=== PATIENT | male | born 1990 | race Caucasian/White ===

== ENCOUNTER 2020-10-17 20:17 | Emergency (ER) | payer OTHER, SELFPAY ==
--- NOTE | ~2020-10-17 | CT_ITS ---
EXAMINATION: CT abdomen pelvis w con DATE: 10/17/2020 23:23 INDICATION: Umbilical pain, hernia TECHNIQUE: Computed tomography (CT) of the abdomen and pelvis was performed with 100 cc Omnipaque 350 intravenous contrast. Automated exposure control and iterative reconstruction technique were employe d. Exam dose: 373.51 mGy-cm total exam DLP. COMPARISON: 12/02/2016 complete abdominal ultrasound FINDINGS: The lung bases are clear of infiltrate or consolidation. Normal heart size. No pericardial or pleural effusion. The liver, gallbladder, bile ducts, spleen, pancreas, pancreatic duct, and adrenal glands and kidneys are unremarkable. No urinary tract calculus or hydroureteronephrosis is evident. The urinary bladder and prostate gland are unremarkable. Normal caliber of the abdominal aorta. There is a separate origin of the splenic artery directly from the abdominal aorta rather than the ce liac trunk. No abdominal aortic calcification or plaque formation. No intraperitoneal or retroperiton eal or pelvic mass lesion or adenopathy or ascites is evident. Normal appendix. No bowel obstruction, bowel wall thickening, pneumatosis or intraperitoneal free air . Approximately 2.1 x 2.3 cm fat-containing umbilical hernia. There is some patchy soft tissue density within the umbilical hernia which may indicate some inflammation or edema. Included skeletal structures are unremarkable. IMPRESSION: 2.1 x 2.3 cm fat-containing umbilical hernia; there is some soft tissue density within t he hernia sac which may indicate some inflammation or edema of the herniated fat. Reviewed, dictated and finalized at [facility] Reviewed, dictated and finalized at [facility] IMPRESSION: 2.1 x 2.3 cm fat-containing umbilical hernia; there is some soft t issue density within the hernia sac which may indicate some inflammation or darius ma of the herniated fat.
[2020-10-17 20:49] VITALS: BP 137/80; PULSE 73; RESP 18; TEMP 36.7; O2SAT 100
--- NOTE | 2020-10-17 21:55 | ED.GENADULT ---
HPI - General Adult General Chief complaint: Wound/Laceration Stated complaint: ? Hernia Time Seen by Provider: 10/17/20 21:41 History of Present Illness HPI narrative: Patient is a 30-year-old male who presents ER with pain and swelling around his umbilicus. Noticed swelling and pain today. Has now developed bruising around the area. 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 No recent injury that he is aware of. He is eating drinking and defecating without issue. No alleviating factors. Related Data Home Medications Medication Instructions Recorded Confirmed No Home Medications 10/17/20 10/17/20 Allergies Allergy/AdvReac Type Severity Reaction Status Date / Time No Known Allergies Allergy Unknown Verified 10/17/20 21:34 Review of Systems Review of Systems: All systems reviewed & are unremarkable except as noted in HPI and below Constitutional: Constitutional: Denies chills and Denies fever(s) Gastrointestinal: Gastrointestinal: Reports abdominal pain, Denies bloating, Denies constipation, Denies nausea and Denies vomiting Comments: Abdominal wall defect Genitourinary: Genitourinary: Denies dysuria and Denies urinary frequency PMFSH Past Medical History Medical History (Updated 10/17/20 @ 23:47 by Rhett Alonzo MD) Healthy adult male Surgical History Surgical History (Updated 10/17/20 @ 21:56 by Rhett Alonzo MD) No history of previous surgery Social History Social History Gender identity (if verbalized by the patient): Male Sexual Orientation (if Verbalized by the Patient): Straight or Heterosexual Exam Narrative: Exam Narrative: GENERAL: Well-appearing, well-nourished, and in no acute distress. HEAD: Normocephalic, atraumatic. ENT: Mucous membranes moist. CHEST: Clear to auscultation. No respiratory distress. HEART: Regular rate and rhythm. Normal peripheral pulses. ABDOMEN: Soft, nontender, nondistended. Contusion on the umbilicus with palpable mass likely umbilical hernia that is containing fat. EXTREMITIES: Normal range of motion. No edema. SKIN: Warm, dry, no rash. NEURO: Alert and oriented x3. Course Course Emergency Course: Patient informed of diagnosis and treatment plan. Verbalized understanding. Vital Signs Vital signs: Vital Signs Temperature 98.0 F 10/17/20 20:49 Pulse Rate 73 10/17/20 20:49 Respiratory Rate 18 10/17/20 20:49 Blood Pressure 137/80 10/17/20 20:49 Pulse Oximetry 100 10/17/20 20:49 Temperature 98.0 F 10/17/20 20:49 Pulse Rate 73 10/17/20 20:49 Respiratory Rate 18 10/17/20 20:49 Blood Pressure 137/80 10/17/20 20:49 Pulse Oximetry 100 10/17/20 20:49 Medical Decision Making Vital Signs Vital Signs: Vital Signs Temperature 98.0 F 10/17/20 20:49 Pulse Rate 73 10/17/20 20:49 Respiratory Rate 18 10/17/20 20:49 Blood Pressure 137/80 10/17/20 20:49 Pulse Oximetry 100 10/17/20 20:49 Temperature 98.0 F 10/17/20 20:49 Pulse Rate 73 10/17/20 20:49 Respiratory Rate 18 10/17/20 20:49 Blood Pressure 137/80 10/17/20 20:49 Pulse Oximetry 100 10/17/20 20:49 ABG Data Interpretation: ITS Impressions Abdomen/Pelvis CT 10/17/20 23:29 IMPRESSION: 2.1 x 2.3 cm fat-containing umbilical hernia; there is some soft tissue density within the hernia sac which may indicate some inflammation or edema of the herniated fat. Discharge Plan Discharge Clinical Impression: Hernia, umbilical Patient Disposition: Home, Self-Care Condition: Stable Instructions: Umbilical Hernia (ED) Additional Instructions: You have a fat-containing umbilical hernia. Will likely cause increased pain with heavy lifting. Follow-up with general surgery for further treatment evaluation. You may require surgical repair. Take ibuprofen as needed for pain. Prescriptions: No Action No Home Medications RF: 0 Follow-up/Re
[2020-10-17 23:59] VITALS: BP 131/78; PULSE 71; RESP 16; O2SAT 100
[2020-10-18 09:00] LABS: Estimated CRCL calculation 85 ml/min; Estimated Glomerular Filt Rate > 60
== END 2020-10-17 23:57 | disposition home or self-care (01) ==
PROVIDERS: Emergency Provider Emergency Medicine; PCP Family Medicine
DX: K42.9 Umbilical hernia without obstruction or gangrene (principal)
CPT/HCPCS: 74177; 99284; Q9967

== ENCOUNTER → 2020-11-02 02:04 | Outpatient (CLI) | payer OTHER, SELFPAY ==
[2020-11-02 19:11] LABS: SARS-CoV-2 RNA PCR Negative
== END ==
PROVIDERS: PCP Family Medicine; Visit Provider Surgery
DX: Z01.812 Encounter for preprocedural laboratory examination (principal); Z20.822 Contact with and (suspected) exposure to COVID-19
CPT/HCPCS: C9803; U0003; U0005

== ENCOUNTER → 2020-11-19 01:20 | Outpatient (CLI) | payer OTHER, SELFPAY ==
[2020-11-19 18:48] LABS: SARS-CoV-2 RNA PCR Negative
== END ==
PROVIDERS: PCP Family Medicine; Visit Provider Surgery
DX: Z01.812 Encounter for preprocedural laboratory examination (principal); Z20.822 Contact with and (suspected) exposure to COVID-19
CPT/HCPCS: C9803; U0003; U0005

== ENCOUNTER 2020-11-22 02:03 | Day surgery (SDC) | payer OTHER, SELFPAY ==
[2020-10-31 16:26] VITALS: BMI 27.4
--- NOTE | 2020-11-09 14:54 | PC.NURSE ---
Pt states no changes in medication or health history since time of initial interview. New Covid date/time and pre-op instructions reviewed with pt. Pt denies any questions at this time.
[2020-11-22] VITALS (7 sets, daily range): BP systolic 107–140; BP diastolic 54–93; PULSE 59–80; RESP 12–20; TEMP 36.6–36.9; O2SAT 97–100
[2020-11-22] MEDS: ACETAMINOPHEN 500 MG TABLET 1000 MG PO (10:17)
[2020-11-22] MEDS: LACTATED RINGERS 1,000 ML 30 ML IV CONT (10:35)
[2020-11-22] MEDS: KETOROLAC 15 MG/ML VIAL (*BKC) IV PUSH (10:38)
--- NOTE | 2020-11-22 10:57 | WPDANESEPPF ---
Anes - Initial Pre Proc Eval Procedure: Operation Date: 11/22/20 12:00 Proposed Procedures p Open Incarcerated Umbilical Hernia Repair With Mesh - Lara Sloan MD Date/Time: 11/22/20 10:57 Surgeon: Lara Sloan MD Pre Op Diagnosis: incarcerated umbilical hernia Patient Data Age: 30 Gender: M Height: 1.68 m Weight: 78 kg Last Vital Signs Temp 36.9 C 11/22/20 10:13 Pulse 59 L 11/22/20 10:13 Resp 20 11/22/20 10:13 BP 136/76 11/22/20 10:13 Pulse Ox 100 11/22/20 10:13 Allergies Allergy/AdvReac Type Severity Reaction Status Date / Time No Known Allergies Allergy Unknown Verified 11/09/20 14:54 Home Medications Medication Instructions Recorded Confirmed Type No Home Medications 10/17/20 11/09/20 History Patient hx anesthesia problems: none Family hx anesthesia problems: none PMFSH Past Medical History Medical History Healthy adult male Surgical History Surgical History No history of previous surgery Family History Family History Father Diabetes mellitus Grandparent Lung cancer Social History Social History Years smoked: 1 Smoking status: Former smoker Tobacco type: cigarettes Alcohol intake: current Last use: 2008 Living arrangements: with family Additional occupation/education comments: [employer] Gender identity (if verbalized by the patient): Male Spiritual care concerns: No Anes - Eval Final PreProcedure Day of Procedure 11/22/20 10:57 Patient weight: overweight Heart: regular rate and rhythm Lungs: clear to auscultation and normal air movement Airway: Mallampati scale class III Neurological: alert and oriented Last oral intake: >/= 8 hours ASA classification: II Emergent: no Anesthetic plan: proceed Anesthesia type and monitoring: general ETT and standard monitoring Informed Consent: The patient's anesthetic plan and its attendant risks and benefits were discussed with the patient/family/POA. Questions were solicited and answers provided to the satisfaction of the patient/family/POA.
--- NOTE | 2020-11-22 11:54 | WPDHPUPDATE1 ---
History and Physical Update Update Date/Time: 11/22/20 11:54 History and Physical has been reviewed, including an updated exam of the patient. There are NO changes in the patient's condition. Risks, benefits, and alternatives have been discussed and questions answered. Patient agrees to proceed with procedure.
[2020-11-22] MEDS: ceFAZolin 2 GM/D5W 50 ML 2 GM/50 ML BAG IVPB (11:58)
[2020-11-22] MEDS: LIDO 1%/EPINEPHRINE 1:100,000 50 ML VIAL 30 ML INFILTRATE (12:22)
--- NOTE | 2020-11-22 13:04 | PM.PROC ---
Procedure Note - Detailed Date of procedure: 11/22/20 Pre-op diagnosis: incarcerated umbilical hernia incarcerated umbilical hernia Post-op diagnosis: same Procedure performed: primary repair of incarcerated umbilical hernia Description of procedure: The patient was taken to the operating room placed in the supine position. After adequate induction of general anesthesia, the patient was prepped and draped in the normal sterile fashion. A time-out was then done to verify the patient's identity, as well as the procedure being performed. I began by localizing the area around the umbilicus. I then made a curvilinear incision in the infraumbilical fold. This was taken down to level fascia. I then was able to bluntly dissect around the umbilicus. I then carefully dissected the umbilicus off the underlying fascia. I then noted a small defect with incarcerated fat. I was able to mobilize the incarcerated tissue and reduced it back into the abdominal cavity. This left an approximately 1 cm defect. I closed this defect primarily with interrupted 0 Ethibond sutures. I then reapproximated the umbilicus to the fascia with a 3 0 Vicryl U-stitch. The subcutaneous tissue was then closed with 3 0 Vicryl suture. The skin was closed with 4 0 Monocryl subcuticular suture. Dermabond was then placed on the wound. The patient tolerated the procedure well was extubated in the operating room postop. She will be transferred to the recovery room in stable condition. Anesthesia: GLMA and local Surgeon: Lara Sloan MD Estimated blood loss (mL): 5 Drains: No Packing: No Pathology: none sent Complications: No immediate complications Condition: stable Disposition: PACU Findings: Incarcerated umbilical hernia with fat, 1 cm defect
== END 2020-11-22 14:31 | disposition home or self-care (01) ==
PROVIDERS: PCP Family Medicine; Visit Provider Surgery
PROC: (CPT 49587; principal; 2020-11-22 12:00)
DX: K42.0 Umbilical hernia with obstruction, without gangrene (principal); Z87.891 Personal history of nicotine dependence
CPT/HCPCS: 49587; A9270; C9803; J0690; J1100; J1885; J2250; J2405; J2704; J3010; J7120; U0003; U0005

== ENCOUNTER 2023-10-18 08:55 | Emergency (ER) | payer BC, SELFPAY ==
[2023-10-18 09:06] VITALS: BP 115/52; PULSE 85; RESP 16; TEMP 36.9; O2SAT 100
--- NOTE | 2023-10-18 09:27 | ED.GENADULT ---
HPI - General Adult General Chief complaint: Skin/Abscess/Foreign Body Stated complaint: Rash Source: patient Mode of arrival: ambulatory Limitations: no limitations History of Present Illness HPI narrative: Patient presents for evaluation of skin concerns. 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 Denies any itching. Reports some burning in the area. He shaved the area so he could apply topical products. He applied aquaphor twice and Neosporin twice. No new topical products prior to the time of symptom onset. Related Data Allergies Allergy/AdvReac Type Severity Reaction Status Date / Time No Known Allergies Allergy Unknown Verified 10/18/23 08:57 Review of Systems Review of Systems: CONSTITUTIONAL: Denies fever, chills, or sweats. EYES: Denies visual changes, redness, or discharge. ENT: Denies rhinorrhea, congestion, sore throat, or otalgia. CARDIOVASCULAR: Denies chest pain, palpitations, or edema. RESPIRATORY: Denies cough or dyspnea. GASTROINTESTINAL: Denies abdominal pain, nausea, vomiting, or diarrhea. GENITOURINARY: Denies dysuria or hematuria. SKIN: Reports areas of redness with associated burning to left inguinal region. MUSCULOSKELETAL: Denies back pain, joint pain, or myalgia. NEUROLOGIC: Denies headache, numbness, dizziness, or weakness. PSYCHIATRIC: Denies anxiety or depression. [facility] Past Medical History Medical History Healthy adult male Surgical History Surgical History H/O umbilical hernia repair 11/22/20 primary repair of incarcerated umbilical hernia Family History Family History Father Diabetes mellitus Grandparent Lung cancer Social History Social History Years smoked: 1 Smoking status: Former smoker Tobacco type: cigarettes Alcohol intake: former Alcohol use details: rare Substance use: never Substance use type: does not use Last use: 2009 Do You Feel Safe in your Home?: Yes Lack of Transportation: No Lack of Food: Never True Current Housing: I Have Housing Difficulty Paying Gas/Electric Bills: No Difficulty Paying for Meds: No Currently Unemployed: No Education: High School Diploma/GED Difficulty w/ Childcare or Family Care: No Living arrangements: with family Occupation/Education: occupation Additional occupation/education comments: [employer] Gender identity (if verbalized by the patient): Male Sexual Orientation (if Verbalized by the Patient): Straight or Heterosexual Spiritual care concerns: No Exam Narrative: GENERAL: Well-appearing, well-nourished, and in no acute distress. HEAD: Normocephalic, atraumatic. EYES: PERRLA and EOMI. ENT: Nares clear, no rhinorrhea or epistaxis. Mucous membranes moist. Oropharynx without tonsillar hypertrophy exudate or other lesions. Bilateral TMs pearly [place] nonbulging NECK: Supple. No adenopathy or masses. No carotid bruits or JVD CHEST: Clear to auscultation. No respiratory distress. No wheezes rales or rhonchi HEART: Regular rate and rhythm. No murmur heard. Normal peripheral pulses. ABDOMEN: Soft, nontender, nondistended, normal active bowel sounds. EXTREMITIES: Normal range of motion. No edema. SKIN: There are (3) areas of excoriation and erythema to inguinal region that are approximately 1cm in size surrounding hair follicles NEURO: No focal deficits. Alert and oriented x3. PSYCH: Normal mood and affect. Course Course Emergency Course: This is a 33-year-old male who presented for evaluation of skin concerns. Appears he has folliculitis. Will treat with doxycycline and mupirocin. Increase hydration. Keep area dry. Follow up with PCP and go to the ER for worsening symptoms.
== END 2023-10-18 09:30 | disposition home or self-care (01) ==
PROVIDERS: Emergency Provider Nurse Practitioner; PCP Family Medicine
DX: L73.9 Follicular disorder, unspecified (principal); Z87.891 Personal history of nicotine dependence
CPT/HCPCS: 99213; G0463

== ENCOUNTER 2023-10-22 16:31 | Emergency (ER) | payer BC, SELFPAY ==
--- NOTE | 2023-10-22 16:37 | ED.SKABFB ---
HPI - Skin/Abscess/Foreign Bdy General Chief complaint: Skin/Abscess/Foreign Body Stated complaint: Rash Time Seen by Provider: 10/22/23 16:37 Source: patient, RN notes reviewed and old records reviewed Mode of arrival: ambulatory Limitations: no limitations History of Present Illness HPI narrative: 33-year-old male presents to the [facility] after being evaluated 4 days ago and prescribed doxycycline and mupirocin. Patient has 3 areas of induration on the left upper inner thigh. Patient states that it is not getting better. Has not gotten worse. 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 Yesterday was the 1st day was able to leave it open to air for period of time No fluctuance, no increased redness, no increased Related Data Allergies Allergy/AdvReac Type Severity Reaction Status Date / Time No Known Allergies Allergy Unknown Verified 10/22/23 16:44 Review of Systems Review of Systems: All systems reviewed & are unremarkable except as noted in HPI and below Constitutional: Constitutional: Reports no additional constitutional complaints Eyes: Eyes: Reports no additional eye complaints ENT: Reports system reviewed and no additional complaints, except as documented Cardiovascular: Cardiovascular: Reports no additional cardiovascular complaints, Denies chest pain and Denies dyspnea Respiratory: Respiratory: Reports no additional respiratory complaints, Denies chest congestion, Denies cough and Denies dyspnea Gastrointestinal: Gastrointestinal: Reports no additional gastrointestinal complaints, Denies abdominal pain, Denies nausea and Denies vomiting Musculoskeletal: Musculoskeletal: Reports no additional musculoskeletal complaints Integumentary/Breasts: Skin/Breast: Reports as per HPI Neurologic: Reports system reviewed and no additional complaints, except as documented Psychiatric: Psychiatric: Reports no additional psychiatric complaints Allergic/Immunologic: Allergic/Immunologic: Reports no additional allergic/immunologic complaints [facility] Past Medical History Medical History Healthy adult male Surgical History Surgical History H/O umbilical hernia repair 11/22/20 primary repair of incarcerated umbilical hernia Family History Family History Father Diabetes mellitus Grandparent Lung cancer Social History Social History Years smoked: 1 Smoking status: Former smoker Tobacco type: cigarettes Alcohol intake: former Alcohol use details: rare Substance use: never Substance use type: does not use Last use: 2009 Do You Feel Safe in your Home?: Yes Lack of Transportation: No Lack of Food: Never True Current Housing: I Have Housing Difficulty Paying Gas/Electric Bills: No Difficulty Paying for Meds: No Currently Unemployed: No Education: High School Diploma/GED Difficulty w/ Childcare or Family Care: No Living arrangements: with family Occupation/Education: occupation Additional occupation/education comments: [employer] Gender identity (if verbalized by the patient): Male Sexual Orientation (if Verbalized by the Patient): Straight or Heterosexual Spiritual care concerns: No Comments At the time of my signature, I reviewed and agree with the nursing past medical, surgical, social, and family history. There is no relevant family history pertinent to the patient complaint. Exam Const: General: cooperative, healthy appearing, comfortable, no acute distress, well developed, alert and well nourished Nutritional Appearance: well nourished Orientation/consciousness: patient oriented x3 Limitations: no limitations HENMT: Head: normal to inspection Ears: hearing grossly normal bilaterally and external ears normal Face/Nose/Sinus: Normal
[2023-10-22 16:40] VITALS: BP 125/72; PULSE 65; RESP 16; TEMP 36.9; O2SAT 100
== END 2023-10-22 16:58 | disposition home or self-care (01) ==
PROVIDERS: Emergency Provider Nurse Practitioner; PCP Family Medicine
DX: L73.9 Follicular disorder, unspecified (principal); Z87.891 Personal history of nicotine dependence
CPT/HCPCS: 99211; G0463

== ENCOUNTER 2023-12-02 18:14 | Emergency (ER) | payer BC, SELFPAY ==
[2023-12-02 18:24] VITALS: BP 141/83; PULSE 71; RESP 16; TEMP 37.1; O2SAT 97
--- NOTE | 2023-12-02 18:37 | ED.SKABFB ---
HPI - Skin/Abscess/Foreign Bdy General Chief complaint: Skin/Abscess/Foreign Body Stated complaint: left thigh worse since last visit Time Seen by Provider: 12/02/23 18:30 Source: patient Mode of arrival: ambulatory Limitations: no limitations History of Present Illness HPI narrative: Edward is a 33-year-old male patient presenting to the clinic today with complaints of a rash to the left inner thigh. He reports that this has been going on for a month and a half. Been treated for folliculitis-states he was taking doxycycline, clobetasol, triamcinolone cream, and mupirocin cream. He reports that none of these creams or medications have helped the symptoms. States the rash itches and jansen at times. Related Data Allergies Allergy/AdvReac Type Severity Reaction Status Date / Time No Known Allergies Allergy Unknown Verified 12/02/23 18:31 Review of Systems Review of Systems: Pertinent positives per HPI. Patient denies any fever, chills, headache, visual changes, dizziness, cough, runny nose, sore throat, shortness of breath, chest pain, palpitations, nausea, vomiting, diarrhea, constipation, abdominal pain, or any urinary issues. [facility] Past Medical History Medical History Healthy adult male Surgical History Surgical History H/O umbilical hernia repair 11/22/20 primary repair of incarcerated umbilical hernia Family History Family History Father Diabetes mellitus Grandparent Lung cancer Social History Social History Years smoked: 1 Smoking status: Former smoker Tobacco type: cigarettes Alcohol intake: former Alcohol use details: rare Substance use: never Substance use type: does not use Last use: 2009 Do You Feel Safe in your Home?: Yes Lack of Transportation: No Lack of Food: Never True Current Housing: I Have Housing Difficulty Paying Gas/Electric Bills: No Difficulty Paying for Meds: No Currently Unemployed: No Education: High School Diploma/GED Difficulty w/ Childcare or Family Care: No Living arrangements: with family Occupation/Education: occupation Additional occupation/education comments: Mailman Gender identity (if verbalized by the patient): Male Sexual Orientation (if Verbalized by the Patient): Straight or Heterosexual Spiritual care concerns: No Comments At the time of my signature, I reviewed and agree with the nursing past medical, surgical, social, and family history. There is no relevant family history pertinent to the patient complaint. Exam Narrative: General: Well-developed, well nourished, in no apparent distress Head: Normocephalic, atraumatic. Cardio: Regular rate and rhythm, s1 and s2 normal, no murmur appreciated. Resp: Clear to auscultation bilaterally, no rhonchi, rales, wheezing or rubs. Integumentary: [place], warm, and dry, red, raised, scaly, beefy appearing rash with circular appearance-likely jock itch. Course Course Emergency Course: Portions of this record may have been created with voice recognition software. Level of Care: Express Care Visit Vital Signs Vital signs: Vital Signs Temperature 37.1 C 12/02/23 18:24 Pulse Rate 71 12/02/23 18:24 Respiratory Rate 16 12/02/23 18:24 Blood Pressure 141/83 H 12/02/23 18:24 Pulse Oximetry 97 12/02/23 18:24 Oxygen Delivery Room Air 12/02/23 18:24 Temperature 37.1 C 12/02/23 18:24 Pulse Rate 71 12/02/23 18:24 Respiratory Rate 16 12/02/23 18:24 Blood Pressure 141/83 H 12/02/23 18:24 Pulse Oximetry 97 12/02/23 18:24 Oxygen Delivery Room Air 12/02/23 18:24 Vital signs reviewed MDM - Skin/Abscess/Foreign Bdy MDM Narrative Medical decision making narrative: At the time of visit patient is resting comfor
== END 2023-12-02 18:45 | disposition home or self-care (01) ==
PROVIDERS: Emergency Provider Nurse Practitioner Family; PCP Family Medicine
DX: B35.6 Tinea cruris (principal); Z87.891 Personal history of nicotine dependence
CPT/HCPCS: 99213; G0463

== ENCOUNTER 2024-03-27 16:28 | Emergency (ER) | payer BC, SELFPAY ==
[2024-03-27 16:37] VITALS: BP 124/64; PULSE 84; RESP 16; TEMP 37.8; O2SAT 99
--- NOTE | 2024-03-27 17:43 | ED.GENADULT ---
HPI - General Adult General Chief complaint: Upper Respiratory Infection Stated complaint: Sore Throat Source: patient Mode of arrival: ambulatory Limitations: no limitations History of Present Illness HPI narrative: Patient presents for evaluation of sore throat and chills. Symptom onset this morning. No fever, cough, shortness of breath, otalgia, nausea, vomiting, diarrhea. No recent sick contacts to his knowledge. He has not taken any medication to assist with the symptoms. He does not smoke. Related Data Allergies Allergy/AdvReac Type Severity Reaction Status Date / Time No Known Allergies Allergy Unknown Verified 03/27/24 16:35 Review of Systems Review of Systems: CONSTITUTIONAL: Reports chills. Denies fever or sweats. EYES: Denies visual changes, redness, or discharge. ENT: Reports sore throat. Denies rhinorrhea, congestion, or otalgia. CARDIOVASCULAR: Denies chest pain, palpitations, or edema. RESPIRATORY: Denies cough or dyspnea. GASTROINTESTINAL: Denies abdominal pain, nausea, vomiting, or diarrhea. GENITOURINARY: Denies dysuria or hematuria. SKIN: Denies rash or itching. MUSCULOSKELETAL: Denies back pain, joint pain, or myalgia. NEUROLOGIC: Denies headache, numbness, dizziness, or weakness. PSYCHIATRIC: Denies anxiety or depression. [facility] Past Medical History Medical History Healthy adult male Surgical History Surgical History H/O umbilical hernia repair 11/22/20 primary repair of incarcerated umbilical hernia Family History Family History Father Diabetes mellitus Grandparent Lung cancer Social History Social History Years smoked: 1 Smoking status: Former smoker Tobacco type: cigarettes Alcohol intake: former Alcohol use details: rare Substance use: never Substance use type: does not use Last use: 2009 Do You Feel Safe in your Home?: Yes Lack of Transportation: No Lack of Food: Never True Current Housing: I Have Housing Difficulty Paying Gas/Electric Bills: No Difficulty Paying for Meds: No Currently Unemployed: No Education: High School Diploma/GED Difficulty w/ Childcare or Family Care: No Living arrangements: with family Occupation/Education: occupation Additional occupation/education comments: [employer] Gender identity (if verbalized by the patient): Male Sexual Orientation (if Verbalized by the Patient): Straight or Heterosexual Spiritual care concerns: No Exam Narrative: GENERAL: Well-appearing, well-nourished, and in no acute distress. HEAD: Normocephalic, atraumatic. EYES: PERRLA and EOMI. ENT: Nares clear, no rhinorrhea or epistaxis. Mucous membranes moist. Oropharynx without tonsillar hypertrophy exudate or other lesions. There is mild posterior pharyngeal erythema. Bilateral TMs pearly holland nonbulging NECK: Supple. No adenopathy or masses. No carotid bruits or JVD CHEST: Clear to auscultation. No respiratory distress. No wheezes rales or rhonchi HEART: Regular rate and rhythm. No murmur heard. Normal peripheral pulses. ABDOMEN: Soft, nontender, nondistended, normal active bowel sounds. EXTREMITIES: Normal range of motion. No edema. SKIN: Warm, dry, no rash. NEURO: No focal deficits. Alert and oriented x3. PSYCH: Normal mood and affect. Course Course Emergency Course: This is a 34-year-old male who presented for evaluation of sore throat and chills. COVID, influenza, strep were all negative. Through shared decision making opted proceed with antibiotic therapy. Increase hydration. [id number] agents for symptom management. Follow up with primary provider. Go to the ER for worsening symptoms. Pt in agreement with plan of care. Level of Care: Express Care Visit V
[2024-03-27 17:49] LABS: EDCOVIDSCREEN Negative (Negative); EDINFLUASCREEN Negative (Negative); EDINFLUBSCREEN Negative (Negative); EDSTREPNEGPOS1 Negative (Negative)
== END 2024-03-27 17:45 | disposition home or self-care (01) ==
PROVIDERS: Emergency Provider Nurse Practitioner; PCP Family Medicine
DX: J02.9 Acute pharyngitis, unspecified (principal); Z20.822 Contact with and (suspected) exposure to COVID-19; Z87.891 Personal history of nicotine dependence
CPT/HCPCS: 87081; 87426; 87804; 87880; 99213; G0463

== ENCOUNTER 2024-09-03 10:29 | Emergency (ER) | payer BC, SELFPAY ==
[2024-09-03 10:40] VITALS: BP 140/67; PULSE 82; RESP 16; TEMP 37.4; O2SAT 100
[2024-09-03 10:54] VITALS: PULSE 82; RESP 16; O2SAT 100
--- NOTE | 2024-09-03 11:17 | ED.URI ---
HPI - URI/Sore Throat General Chief Complaint: Upper Respiratory Infection Stated Complaint: Cough Time Seen by Provider: 09/03/24 11:17 Source: patient, RN notes reviewed and old records reviewed Mode of arrival: ambulatory Limitations: no limitations History of Present Illness HPI Narrative: Patient presents with complaints cough for several weeks. 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 He denies any shortness of breath. Reports cough is minimally productive, mostly hacking in nature. Denies any underlying respiratory issues, denies smoking. He is not in any obvious distress Related Data Allergies Allergy/AdvReac Type Severity Reaction Status Date / Time No Known Allergies Allergy Unknown Verified 09/03/24 10:32 Review of Systems Review of Systems: All systems reviewed & are unremarkable except as noted in HPI and below Constitutional: Constitutional: Reports no additional constitutional complaints ENT: Reports system reviewed and no additional complaints, except as documented Cardiovascular: Cardiovascular: Reports no additional cardiovascular complaints Respiratory: Respiratory: Reports no additional respiratory complaints, Reports chest congestion and Reports cough Gastrointestinal: Gastrointestinal: Reports no additional gastrointestinal complaints [facility] Past Medical History Medical History Healthy adult male Surgical History Surgical History H/O umbilical hernia repair 11/22/20 primary repair of incarcerated umbilical hernia Family History Family History Father Diabetes mellitus Grandparent Lung cancer Social History Social History Years smoked: 1 Smoking status: Former smoker Tobacco type: cigarettes Alcohol intake: former Alcohol use details: rare Substance use: never Substance use type: does not use Last use: 2009 Do You Feel Safe in your Home?: Yes Lack of Transportation: No Lack of Food: Never True Current Housing: I Have Housing Difficulty Paying Gas/Electric Bills: No Difficulty Paying for Meds: No Currently Unemployed: No Education: High School Diploma/GED Difficulty w/ Childcare or Family Care: No Living arrangements: with family Occupation/Education: occupation Additional occupation/education comments: Mailman Gender identity (if verbalized by the patient): Male Sexual Orientation (if Verbalized by the Patient): Straight or Heterosexual Spiritual care concerns: No Comments At the time of my signature, I reviewed and agree with the nursing past medical, surgical, social, and family history. There is no relevant family history pertinent to the patient complaint. Exam Const: General: cooperative, no acute distress, alert and awake Orientation/consciousness: oriented to person, oriented to place and oriented to time HENMT: Head: normal to inspection Ears: TM's normal bilaterally Resp: Effort & Inspection: normal respiratory effort and able to speak in complete sentences Auscultation: clear to auscultation bilaterally, no crackles, no rales, no rhonchi, no wheezes and diminished lung sounds bilateral in the lower lung collins Cardio: Palpation: normal PMI Rate: regular rate Rhythm: regular rhythm Heart sounds: S1 normal heart sound present and S2 normal heart sound present Neuro: General: oriented to person, oriented to place and oriented to time Cranial nerves: Yes CN's II-XII intact bilaterally Psych: Appearance: grossly normal Thought process: Normal thought process present Insight: Good insight present (Psych) Judgement: Good judgement present (Psych) Course Course Level of Care: Express Care Visit Vital Signs Vital signs: Vital Signs Temperature 99.4 F 09/03/24 10:40 Pulse Rate 82 09/03/24 10:40 Respiratory Rate 16 09/03/24 10:40 Blood Pressure 140/67 09/03/24 10:40 Pulse Oximetry 100 09/03/24 10:40 Oxygen Delivery Room Air 09/03/24 10:40 Temperature 99.4 F 09/03/24 10:40 Pulse Rate 82 09/03/24 10:54 Respiratory Rate 16 09/03/24 10:54 Blood Pressure 140/67 09/03/24 10:40 Pulse Oximetry 100 09/03/24 10:54 Oxygen Delivery Room Air 09/03/24 10:40 Reviewed MDM - URI/Sore Throat MDM Narrative Medical decision making narrative: Reassuring physical exam. Patient not in any distress, nontoxic appearing. No x-ray available, will treat as bronchitis starting with steroid burst and bronchodilators, adding azithromycin for added anti-inflammatory effect. Patient agreeable Differential Diagnosis Differential diagnosis: Likely upper respiratory infection, viral infection and bronchitis Medical Records Attestation: I reviewed the patient's medical records. Discharge Plan Discharge Clinical Impression: Bronchitis Patient Disposition: Home, Self-Care Condition: Stable Instructions: Antibiotic Form, Acute Bronchitis (ED) Additional Instructions: Take medications as prescribed. Follow with primary care provider. Emergency department for new or worse symptoms Patient Language: Polish Prescriptions: New azithromycin 250 mg tablet See Rx Instructions .ROUTE .COMPLEX Qty: 6 0RF Rx Instructions: For 250 mg dose pack: take 500 mg today (day 1), then 250 mg for 4 days (days 2-5) prednisone 50 mg tablet 50 mg PO DAILY Qty: 5 0RF albuterol sulfate [Ventolin HFA] 90 mcg/actuation HFA aerosol inhaler 2 puff inhalation QID PRN (Reason: shortness of breath or wheezing) Qty: 8.5 0RF Follow-up/Referrals: Anibal Robert MD [Primary Care Provider] - 2 Weeks Stand Alone Forms: Work/School Release IP Time of Disposition: 11:32
== END 2024-09-03 11:35 | disposition home or self-care (01) ==
PROVIDERS: Emergency Provider Nurse Practitioner Family; PCP Family Medicine
DX: J40 Bronchitis, not specified as acute or chronic (principal); Z87.891 Personal history of nicotine dependence
CPT/HCPCS: 99213; G0463